=== PATIENT | female | born 1990 | race American Indian/Alaskan Native ===

== ENCOUNTER 2018-01-18 16:12 | Emergency (ER) | payer SELFPAY ==
[2018-01-18 16:21] VITALS: O2SAT 100
[2018-01-18] MEDS ORDERED: Sodium Chloride 0.9% 1,000 ML IV ONE (17:07)
[2018-01-18] MEDS ORDERED: Sodium Chloride 0.9% 1,000 ML ONE (17:26)
[2018-01-18 17:29] LABS: BASO % 0.3 % (0.0-2.0); EOS % 0.6 % (0.0-4.0); HEMOGLOBIN 11.7 g/dL (11.0-16.0); LYMPH # 1.7 K/uL (1.0-4.3); LYMPH % 22.7 % (20.0-40.0); MEAN CELL VOLUME 80.3 fL (81.0-99.0); MEAN CORPUSCULAR HEMOGLOBIN 26.2 pg (27.0-31.0); MEAN CORPUSCULAR HGB CONC 32.6 g/dL (33.0-37.0); MEAN PLATELET VOLUME 9.9 fL (7.2-11.7); MONO # 0.7 K/uL (0.0-0.8); MONO % 9.4 % (0.0-10.0); NEUT # 4.9 K/uL (1.8-7.0); NRBC % 0.1 % (0.0-2.0); RBC 4.47 Mil/uL (3.80-5.20); RED CELL DISTRIBUTION WIDTH 13.6 % (11.5-14.5); WHITE BLOOD COUNT 7.4 K/uL (4.8-10.8)
[2018-01-18 17:48] LABS: ALB/GLOB RATIO 1.3 (1.0-2.1); ALBUMIN 3.9 g/dL (3.5-5.0); ALT/SGPT 15 U/L (9-52); AST/SGOT 19 U/L (14-36); BLOOD UREA NITROGEN 9 mg/dL (7-17); CALCIUM 9.3 mg/dl (8.6-10.4); GFR AFRICAN-AMERICAN > 60; GFR NON-AFRICAN AMERICAN > 60; LIPASE 140 U/L (23-300)
--- NOTE | 2018-01-18 18:39 | C.PDOC ---
History Of Present Illness <Iqra Shah - Last Filed: 01/18/18 18:55> <Pritesh Ovalles - Last Filed: 01/18/18 21:08> 27 y/o female presents to ED with c/o pelvic pain associated with vaginal bleeding for 5 days. PT notes the bleeding is improving but the pain is worsening prompting ED visit. Also notes vomiting today. Patient states she had similar episode x 1 in past secondary to dysmenorrhea. Patient admits to being sexually active and denies fever, vaginal discharge, back pain, n/v or any other complaints at this time. (Iqra Shah) History Per: Patient History/Exam Limitations: no limitations Onset/Duration Of Symptoms: Days Quality Of Discomfort: "Pain" <Iqra Shah - Last Filed: 01/18/18 18:55> <Pritesh Ovalles - Last Filed: 01/18/18 21:08> Time Seen by Provider: 01/18/18 16:27 Chief Complaint (Nursing): Abdominal Pain Past Medical History Reviewed: Historical Data, Nursing Documentation, Vital Signs - Medical History PMH: No Chronic Diseases Surgical History: No Surg Hx Family History: States: No Known Family Hx - Social History Hx Alcohol Use: No Hx Substance Use: No - Immunization History Hx Tetanus Toxoid Vaccination: No Hx Influenza Vaccination: No Hx Pneumococcal Vaccination: No <Iqra Shah - Last Filed: 01/18/18 18:55> Vital Signs: Last Vital Signs Temp 98.8 F 01/18/18 19:34 Pulse 83 01/18/18 19:34 Resp 18 01/18/18 19:34 BP 112/64 01/18/18 19:34 Pulse Ox 100 01/18/18 19:34 Review Of Systems Constitutional: Negative for: Fever, Chills Genitourinary: Positive for: Pelvic Pain Musculoskeletal: Negative for: Back Pain Skin: Negative for: Rash <Iqra Shah - Last Filed: 01/18/18 18:55> Physical Exam - Physical Exam Appears: Non-toxic, In Acute Distress (in painful distress) Skin: Warm, Dry, No Rash Head: Atraumatic, Normacephalic Eye(s): bilateral: Normal Inspection, EOMI Nose: Normal Oral Mucosa: Moist Neck: Normal ROM, Supple Chest: Symmetrical Cardiovascular: Rhythm Regular Respiratory: Normal Breath Sounds, No Accessory Muscle Use, No Rales, No Rhonchi , No Wheezing Gastrointestinal/Abdominal: Soft, Tenderness (Pelvic ), No Guarding, No Rebound Pelvic: Vaginal Bleeding (Vulva), No Vaginal Discharge, No Cervical Motion Tenderness, No Cervix Open Extremity: Normal ROM Neurological/Psych: Oriented x3, Normal Speech, Normal Cognition <Iqra Shah - Last Filed: 01/18/18 18:55> ED Course And Treatment - Laboratory Results Result Diagrams: 01/18/18 17:23 01/18/18 17:23 O2 Sat by Pulse Oximetry: 100 (RA) Pulse Ox Interpretation: Normal Progress Note: Pelvis Us, Toradol, Zofran, Blood work, UA ordered. Case endorsed to Dr Ovalles pending US and re-evaluation. <Iqra Shah - Last Filed: 01/18/18 18:55> - Laboratory Results Result Diagrams: 01/18/18 17:23 01/18/18 17:23 <Pritesh Ovalles - Last Filed: 01/18/18 21:08> Medical Decision Making <Iqra Shah - Last Filed: 01/18/18 18:55> <Pritesh Ovalles - Last Filed: 01/18/18 21:08> Medical Decision Making: signed over @ 1900 to f/u US, probable miscarraige pt seen and examined- belly benign, no adnexal tenderness pt has had menstrual bleeding x 5 days (NOT just 1 day today) relates h/o similar heavy menstrual bleeding with + preg test but was a miscarraige so pt now [id number] B+ Quant 515 low (Pritesh Ovalles) Disposition - Disposition Disposition Time: 18:57 <Iqra Shah - Last Filed: 01/18/18 18:55> Doctor Will See Patient In The: Office Counseled Patient/Family Regarding: Studies Performed, Diagnosis <Pritesh Ovalles - Last Filed: 01/18/18 21:08> - Disposition Disposition: HOME/ ROUTINE Condition: GOOD Instructions: Miscarriage (DC) Forms: [facility] (Arabic) - Clinical Impression Clinical Impression: Pelvic pain, - 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 - Scribe Statement The provider has reviewed the documentation as recorded by the Scribe <Iqra Shah - Last Filed: 01/18/18 18:55> <Pritesh Ovalels - Last Filed: 01/18/18 21:08> - Scribe Statement Keegan Boss All medical record entries made by the Scribe were at my direction and personally dictated by me. I have reviewed the chart and agree that the record accurately reflects my personal performance of the history, physical exam, medical decision making, and the department course for this patient. I have also personally directed, reviewed, and agree with the discharge instructions and disposition. (Iqra Shah)
[2018-01-18 18:43] LABS: HCG,QUALITATIVE URINE POSITIVE (NEGATIVE)
[2018-01-18 18:47] LABS: SQUAMOUS EPITHIAL 3 /hpf (0-5); URINE BACTERIA RARE (<OCC); URINE BILIRUBIN NEGATIVE (NEGATIVE); URINE BLOOD 3+ (NEGATIVE); URINE CLARITY Hazy (Clear); URINE COLOR Yellow (YELLOW); URINE GLUCOSE (UA) NORMAL (Normal); URINE LEUKOCYTE ESTERASE NEG Leu/uL (Negative); URINE PROTEIN NEGATIVE (NEGATIVE); URINE UROBILINOGEN NORMAL mg/dL (0.2-1.0)
[2018-01-18 18:49] LABS: URINE AMORPHOUS SEDIMENT OCC /ul (<OCC)
--- NOTE | 2018-01-18 20:58 | US ---
EXAM: US First Trimester, Transabdominal US , Transvaginal CLINICAL HISTORY: 27 years old, female; Signs and symptoms; Other: Pelvic pain / bleeding TECHNIQUE: Real-time transabdominal and transvaginal obstetrical ultrasound of the maternal pelvis and a first trimester with image documentation. Transvaginal imaging was used for better evaluation of the fetus and adnexa. COMPARISON: No relevant prior studies available. FINDINGS: Gestation: No intrauterine gestational sac. Uterus/cervix: Increased vascularity within myometrium. Endometrium: Up to 3.2 cm in thickness, heterogeneous without internal vascularity. Closed cervix. Ovaries: RIGHT ovary: 2.7 x 1.8 x 2.3 cm mixed echogenicity lesion. LEFT ovary: 2.7 x 2.8 x 2.9 cm anechoic lesion. No adnexal masses. Free fluid: Small free fluid within abdomen and pelvis. IMPRESSION: 1. No intrauterine gestation. DDX: Early IUP, missed , ectopic . 2. Thickened, heterogeneous endometrium. RPOC not excluded. 3. Probable complex RIGHT ovarian cyst. Intraovarian ectopic , although unlikely, not entirely excluded. 4. Simple LEFT ovarian cyst.
[2018-01-18 21:23] VITALS: BP 118/75; PULSE 65; RESP 20; TEMP 99
== END 2018-01-18 21:24 | disposition home or self-care (01) ==
LOC: C.ER 16:12
DX: O26.90 Pregnancy related conditions, unspecified, unspecified trimester (principal); R10.2 Pelvic and perineal pain; Z3A.00 Weeks of gestation of pregnancy not specified
CPT/HCPCS: 76830; 76856; 80053; 81001; 83690; 84702; 84703; 85025; 86850; 86900; 87086; 96374; 96375; 99285; J1885; J2270; J2405; J7030

== ENCOUNTER 2018-03-18 10:01 | Emergency (ER) | payer SELFPAY ==
[2018-03-18 10:14] VITALS: RESP 18
[2018-03-18 10:34] LABS: SQUAMOUS EPITHIAL 2 /hpf (0-5); URINE BILIRUBIN NEGATIVE (NEGATIVE); URINE BLOOD NEGATIVE (NEGATIVE); URINE CLARITY Clear (Clear); URINE COLOR Yellow (YELLOW); URINE GLUCOSE (UA) NORMAL (Normal); URINE LEUKOCYTE ESTERASE NEG Leu/uL (Negative); URINE PROTEIN NEGATIVE (NEGATIVE); URINE UROBILINOGEN NORMAL mg/dL (0.2-1.0)
--- NOTE | 2018-03-18 10:43 | C.PDOC ---
History Of Present Illness 27 year old with no past medical history presents to the ER for 2 months of abdominal pain. Patient states the pain is located in the RUQ and sometimes radiates to the middle of upper of her abdomen. Patient states the pain comes and goes and is not associated with food. She states the pain is sometimes made worse when she lifts something heavy. She states the pain is currently a 7/10 and it became worse yesterday evening so she decided to come to the ER today. She has not taken anything for her pain. She denies nausea, vomiting, diarrhea, constipation, blood in her stool, dysuria, fever or chills. She states she did go to the [facility] in January but she has not returned for follow up. She denies any surgeries. Chief Complaint (Nursing): Abdominal Pain History Per: Patient History/Exam Limitations: no limitations Past Medical History Vital Signs: Last Vital Signs Temp 98.3 F 03/18/18 10:12 Pulse 78 03/18/18 10:12 Resp 18 03/18/18 10:12 BP 128/80 03/18/18 10:12 Pulse Ox 100 03/18/18 11:14 Family History: States: Unknown Family Hx - Social History Hx Alcohol Use: No Hx Substance Use: No - Immunization History Hx Tetanus Toxoid Vaccination: No Hx Influenza Vaccination: No Hx Pneumococcal Vaccination: No Review Of Systems Constitutional: Negative for: Fever, Chills Cardiovascular: Negative for: Chest Pain, Palpitations Respiratory: Negative for: Shortness of Breath Gastrointestinal: Positive for: Abdominal Pain. Negative for: Nausea, Vomiting , Diarrhea, Constipation, Melena, Hematochezia, Hematemesis Genitourinary: Negative for: Dysuria Physical Exam - Physical Exam Appears: Well, Non-toxic, No Acute Distress Skin: Normal Color Head: Atraumatic, Normacephalic Eye(s): bilateral: Normal Inspection, PERRL, EOMI Cardiovascular: Rhythm Regular Respiratory: Normal Breath Sounds Gastrointestinal/Abdominal: Soft, Tenderness (RUQ tenderness- mild ), No Organomegaly, No Mass, No Distention, No Guarding Back: No CVA Tenderness Extremity: No Tenderness, No Pedal Edema ED Course And Treatment - Laboratory Results Result Diagrams: 03/18/18 10:45 03/18/18 10:45 O2 Sat by Pulse Oximetry: 100 Medical Decision Making Medical Decision Making: Urine : Negative UA: negative CBC: WNL CMP: WNL Lipase: 123 Abdominal US: Findings suggest fatty infiltration however other infiltrative hepatic cellular disease process not excluded. No evidence of cholelithiasis. Limited evaluation of the pancreas as described. 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 MD/DO has examined the patient and agrees with the treatment plan.
[2018-03-18 10:52] LABS: BASO % 0.5 % (0.0-2.0); EOS # 0.1 K/uL (0.0-0.7); EOS % 2.1 % (0.0-4.0); HEMOGLOBIN 12.6 g/dL (11.0-16.0); LYMPH # 1.8 K/uL (1.0-4.3); MEAN CELL VOLUME 80.5 fL (81.0-99.0); MEAN CORPUSCULAR HEMOGLOBIN 26.7 pg (27.0-31.0); MEAN CORPUSCULAR HGB CONC 33.1 g/dL (33.0-37.0); MEAN PLATELET VOLUME 9.8 fL (7.2-11.7); MONO # 0.6 K/uL (0.0-0.8); MONO % 10.2 % (0.0-10.0); NEUT # 2.9 K/uL (1.8-7.0); NEUT % 53.2 % (50.0-75.0); NRBC % 0.1 % (0.0-2.0); RBC 4.71 Mil/uL (3.80-5.20); RED CELL DISTRIBUTION WIDTH 13.7 % (11.5-14.5); WHITE BLOOD COUNT 5.4 K/uL (4.8-10.8)
[2018-03-18 11:04] LABS: ALB/GLOB RATIO 1.5 (1.0-2.1); ALBUMIN 4.3 g/dL (3.5-5.0); ALT/SGPT 24 U/L (9-52); AST/SGOT 16 U/L (14-36); BLOOD UREA NITROGEN 7 mg/dL (7-17); CALCIUM 9.1 mg/dl (8.6-10.4); GFR AFRICAN-AMERICAN > 60; GFR NON-AFRICAN AMERICAN > 60; LIPASE 123 U/L (23-300)
--- NOTE | 2018-03-18 13:05 | US ---
Date of service: 03/18/2018 HISTORY: RUQ pain COMPARISON: No prior TECHNIQUE: Sonographic evaluation of the abdomen. FINDINGS: LIVER: Measures 13.4 cm. Smooth contour though slight increased hepatic echogenicity rule which may represent fatty infiltration however other infiltrative hepatocellular disease process not excluded. No masses or collections seen on images presented. . No intrahepatic bile duct dilatation. GALLBLADDER: The gallbladder is physiologically distended. No evidence of intraluminal gallbladder calculi. Gallbladder wall thickening or pericholecystic fluid collections identified. COMMON BILE DUCT: Measures 2.6 mm. No stones. No dilatation. PANCREAS: Pancreas is poorly delineated due to body habitus and bowel gas. . No gross ductal dilatation. RIGHT KIDNEY: Measures 10.3 x 4.4 x 4.6cm. Normal echogenicity. No calculus, mass, or hydronephrosis. LEFT KIDNEY: Measures 11.2 x 5.6 x 5.2cm. Normal echogenicity. No calculus, mass, or hydronephrosis. SPLEEN: Normal in size and contour. No mass. AORTA: No aneurysmal dilatation. IVC: Unremarkable. OTHER FINDINGS: None. IMPRESSION: Findings suggest fatty infiltration however other infiltrative hepatic cellular disease process not excluded. No evidence of cholelithiasis. Limited evaluation of the pancreas as described.
[2018-03-18 13:24] VITALS: BP 129/73; PULSE 76; TEMP 98; O2SAT 98
== END 2018-03-18 13:24 | disposition home or self-care (01) ==
LOC: C.ER 10:01
DX: K80.50 Calculus of bile duct without cholangitis or cholecystitis without obstruction (principal); R10.11 Right upper quadrant pain
CPT/HCPCS: 76700; 80053; 81001; 83690; 85025; 96374; 96375; 99285; J1885

== ENCOUNTER 2018-12-04 14:14 | Outpatient (CLI) | payer OTHER, SELFPAY | END 2018-12-04 14:15 | disposition home or self-care (01) | LOC: C.USIC 14:14 | DX: R10.2 Pelvic and perineal pain (principal); Z70.8 Other sex counseling ==